=== PATIENT | male | born 1990 | race Hispanic/Latino ===

== ENCOUNTER 2024-06-02 11:11 | Emergency (ER) | payer BC, SELFPAY ==
[2024-06-02] MEDS ORDERED: Bacitracin 1 PK ONE (12:10)
[2024-06-02] MEDS ORDERED: Lidocaine 1% w/Epinephrine 1:100K 20 ML VIAL ONE (12:10)
[2024-06-02] MEDS ORDERED: Boostrix 0.5 ML (Tdap) VIAL (>/=7 yrs of age) ONE (12:34)
== END 2024-06-02 13:20 | disposition home or self-care (01) ==
LOC: ERS 11:11
DX: S01.81XA Laceration without foreign body of other part of head, initial encounter (principal); W26.9XXA Contact with unspecified sharp object(s), initial encounter
CPT/HCPCS: 12013; 90471; 90715

== ENCOUNTER 2024-06-09 07:36 | Emergency (ER) | payer BC, OTHER | END 2024-06-09 08:36 | disposition home or self-care (01) | LOC: ERS 07:36 | DX: S01.81XD Laceration without foreign body of other part of head, subsequent encounter (principal) ==